=== PATIENT | female | born 1945 | race Caucasian/White ===

== ENCOUNTER 2021-08-25 11:58 | Inpatient (IN) ==
[2021-08-25 16:17] LABS: Basophils % 0.1 % (0.0-0.8); Eosinophils # 0.2 10*3/uL (0.0-0.87); Eosinophils % 2.1 % (0.00-10.9); Hematocrit 37.2 VOL% (35.7-47.0); Hemoglobin 11.8 GM/DL (12.0-16.0); Immature Granulocytes % 0.4 %; Immature Granulocytes Absolute 0.03 #; Lymphocytes # 1.9 10*3/uL (1.4-4.0); Lymphocytes % 23.3 % (21.3-54.2); Mean Corpuscular HGB Conc 31.7 GM/DL (32-36); Mean Corpuscular Volume 89.6 FL (87-102); Mean Platelet Volume 11.3 FL (9.6-12.0); Monocytes % 9.3 % (1.7-12.7); Neutrophils % 64.8 % (38.7-73.9); Platelet Count 238 T/CUMM (130-400); Red Blood Count 4.15 MC/CUMM (3.8-5.5); Red Cell Distribution Width 13.3 % (9.3-17.3); White Blood Count 8.2 T/CUMM (4-12)
[2021-08-25 16:25] LABS: PT Patient Result 10.9 SECS (10.5-12.0); Partial Thromboplastin Time 20.9 SECS (23.8-32.1)
[2021-08-25 16:32] LABS: Alanine Aminotransferase 23 U/L (13-56); Albumin 3.1 G/DL (3.4-5.0); Alkaline Phosphatase 40 U/L (45-117); Aspartate Amino Transferase 24 U/L (0-37); Bilirubin,Total < 0.39 MG/DL (0.20-1.00); Blood Urea Nitrogen 19 MG/DL (7-18); Calcium 9.5 MG/DL (8.5-10.1); Carbon Dioxide 24 MMOL/L (21-32); Estimated Glom Filtration Rate 75 ML/MIN; Glucose 184 MG/DL (74-106); Osmolality,Calculated 281.7 MOS/KG (273-304); Potassium 4.5 MMOL/L (3.5-5.1); Sodium 138 MMOL/L (136-145)
[2021-08-25 16:36] LABS: Risk Ratio 3.33
[2021-08-25] MEDS ORDERED: GLUCAGON 1 MG VIAL IM PRN (18:20)
[2021-08-25] MEDS ORDERED: DEXTROSE 10% 250 ML BAG IV PRN (18:34)
[2021-08-25] MEDS: INSULIN REGULAR 100 UNIT/ML SUBCUT SCH (21:34)
[2021-08-25] MEDS: SIMVASTATIN 10 MG TABLET PO SCH (21:37)
[2021-08-25] MEDS ORDERED: ONDANSETRON 4 MG/2 ML VIAL IV PRN (21:45)
[2021-08-25] MEDS: SODIUM CHLORIDE 0.9% 1,000 ML IV SCH (22:38)
[2021-08-25] MEDS: DOCUSATE SODIUM 100 MG CAPSULE PO SCH (23:19)
[2021-08-25] MEDS: MEMANTINE 10 MG TABLET PO SCH (23:20)
[2021-08-26 05:13] LABS: Basophils % 0.4 % (0.0-0.8); Eosinophils # 0.3 10*3/uL (0.0-0.87); Eosinophils % 3.5 % (0.00-10.9); Hematocrit 34.2 VOL% (35.7-47.0); Hemoglobin 10.8 GM/DL (12.0-16.0); Immature Granulocytes % 0.4 %; Immature Granulocytes Absolute 0.03 #; Lymphocytes # 2.4 10*3/uL (1.4-4.0); Lymphocytes % 32.2 % (21.3-54.2); Mean Corpuscular HGB Conc 31.6 GM/DL (32-36); Mean Corpuscular Volume 90.2 FL (87-102); Mean Platelet Volume 11.6 FL (9.6-12.0); Monocytes % 10.4 % (1.7-12.7); Neutrophils % 53.1 % (38.7-73.9); Platelet Count 225 T/CUMM (130-400); Red Blood Count 3.79 MC/CUMM (3.8-5.5); Red Cell Distribution Width 13.5 % (9.3-17.3); White Blood Count 7.3 T/CUMM (4-12)
[2021-08-26 05:28] LABS: Alanine Aminotransferase 20 U/L (13-56); Albumin 2.9 G/DL (3.4-5.0); Alkaline Phosphatase 35 U/L (45-117); Aspartate Amino Transferase 14 U/L (0-37); Bilirubin,Total < 0.39 MG/DL (0.20-1.00); Blood Urea Nitrogen 18 MG/DL (7-18); Calcium 8.7 MG/DL (8.5-10.1); Carbon Dioxide 27 MMOL/L (21-32); Estimated Glom Filtration Rate 74 ML/MIN; Glucose 123 MG/DL (74-106); Osmolality,Calculated 285.1 MOS/KG (273-304); Potassium 3.3 MMOL/L (3.5-5.1); Sodium 142 MMOL/L (136-145); Total Protein 6.1 G/DL (6.4-8.2)
[2021-08-26] MEDS: SODIUM CHLORIDE 0.9% 1,000 ML IV SCH ×2 (06:27→17:15)
[2021-08-26 09:02] LABS: Folate > 24.00 NG/ML (5.38-24.0); Vitamin B12 922 PG/ML (211-911)
[2021-08-26] MEDS: CLOPIDOGREL 75 MG TABLET PO SCH (09:41)
[2021-08-26] MEDS: PANTOPRAZOLE 40 MG TABLET PO SCH (09:41)
[2021-08-26] MEDS: INSULIN REGULAR 100 UNIT/ML SUBCUT SCH ×4 (09:41→21:08)
[2021-08-26] MEDS: CYANOCOBALAMIN 500 MCG TABLET PO SCH (09:41)
[2021-08-26] MEDS: hydrALAZINE 25 MG TABLET PO SCH (09:42)
[2021-08-26] MEDS: DOCUSATE SODIUM 100 MG CAPSULE PO SCH ×2 (09:42→21:07)
[2021-08-26] MEDS: SERTRALINE 25 MG TABLET PO SCH (09:42)
[2021-08-26] MEDS: ASPIRIN EC 81 MG TABLET PO SCH (09:42)
[2021-08-26] MEDS: DONEPEZIL 10 MG TABLET PO SCH (09:42)
[2021-08-26] MEDS: FENOFIBRATE 160 MG TABLET PO SCH (09:46)
[2021-08-26] MEDS: ANASTROZOLE 1 MG TABLET PO SCH (09:46)
[2021-08-26] MEDS ORDERED: POTASSIUM CHLORIDE 20 MEQ TABLET PO ONE (16:35)
[2021-08-26] MEDS ORDERED: POTASSIUM CHLORIDE 20 MEQ TABLET PO PRN (16:35)
[2021-08-26] MEDS: SIMVASTATIN 10 MG TABLET PO SCH (21:07)
[2021-08-26] MEDS: MEMANTINE 10 MG TABLET PO SCH (21:07)
[2021-08-27] MEDS: SODIUM CHLORIDE 0.9% 1,000 ML IV SCH ×3 (00:07→16:40)
[2021-08-27] MEDS: INSULIN REGULAR 100 UNIT/ML SUBCUT SCH ×4 (08:15→21:27)
[2021-08-27] MEDS: hydrALAZINE 25 MG TABLET PO SCH (09:18)
[2021-08-27] MEDS: ASPIRIN EC 81 MG TABLET PO SCH (09:18)
[2021-08-27] MEDS: DONEPEZIL 10 MG TABLET PO SCH (09:18)
[2021-08-27] MEDS: FENOFIBRATE 160 MG TABLET PO SCH (09:18)
[2021-08-27] MEDS: DOCUSATE SODIUM 100 MG CAPSULE PO SCH ×2 (09:18→21:26)
[2021-08-27] MEDS: SERTRALINE 25 MG TABLET PO SCH (09:19)
[2021-08-27] MEDS: ANASTROZOLE 1 MG TABLET PO SCH (09:19)
[2021-08-27] MEDS: CLOPIDOGREL 75 MG TABLET PO SCH (09:19)
[2021-08-27] MEDS: CYANOCOBALAMIN 500 MCG TABLET PO SCH (09:19)
[2021-08-27] MEDS: PANTOPRAZOLE 40 MG TABLET PO SCH (09:19)
[2021-08-27 12:48] LABS: Calcium 8.2 MG/DL (8.5-10.1); Osmolality,Calculated 284.3 MOS/KG (273-304)
[2021-08-27] MEDS: MEMANTINE 10 MG TABLET PO SCH (21:26)
[2021-08-27] MEDS: SIMVASTATIN 10 MG TABLET PO SCH (21:26)
[2021-08-28] MEDS: SODIUM CHLORIDE 0.9% 1,000 ML IV SCH ×2 (00:10→09:34)
[2021-08-28 05:51] LABS: Basophils % 0.3 % (0.0-0.8); Eosinophils # 0.3 10*3/uL (0.0-0.87); Eosinophils % 4.1 % (0.00-10.9); Hemoglobin 10.9 GM/DL (12.0-16.0); Immature Granulocytes % 0.5 %; Immature Granulocytes Absolute 0.03 #; Lymphocytes # 2.3 10*3/uL (1.4-4.0); Lymphocytes % 35.4 % (21.3-54.2); Mean Corpuscular HGB Conc 31.1 GM/DL (32-36); Mean Corpuscular Volume 91.1 FL (87-102); Mean Platelet Volume 11.6 FL (9.6-12.0); Monocytes % 10.3 % (1.7-12.7); Neutrophils % 49.4 % (38.7-73.9); Platelet Count 220 T/CUMM (130-400); Red Blood Count 3.84 MC/CUMM (3.8-5.5); Red Cell Distribution Width 13.3 % (9.3-17.3); White Blood Count 6.5 T/CUMM (4-12)
[2021-08-28 06:13] LABS: Alanine Aminotransferase 16 U/L (13-56); Albumin 2.5 G/DL (3.4-5.0); Alkaline Phosphatase 31 U/L (45-117); Aspartate Amino Transferase 16 U/L (0-37); Bilirubin,Total < 0.39 MG/DL (0.20-1.00); Blood Urea Nitrogen 16 MG/DL (7-18); Calcium 8.6 MG/DL (8.5-10.1); Carbon Dioxide 21 MMOL/L (21-32); Estimated Glom Filtration Rate 85 ML/MIN; Glucose 124 MG/DL (74-106); Potassium 3.9 MMOL/L (3.5-5.1); Sodium 143 MMOL/L (136-145); Total Protein 5.6 G/DL (6.4-8.2)
[2021-08-28] MEDS: CLOPIDOGREL 75 MG TABLET PO SCH (09:29)
[2021-08-28] MEDS: CYANOCOBALAMIN 500 MCG TABLET PO SCH (09:30)
[2021-08-28] MEDS: SERTRALINE 25 MG TABLET PO SCH (09:30)
[2021-08-28] MEDS: DONEPEZIL 10 MG TABLET PO SCH (09:30)
[2021-08-28] MEDS: hydrALAZINE 25 MG TABLET PO SCH (09:30)
[2021-08-28] MEDS: DOCUSATE SODIUM 100 MG CAPSULE PO SCH ×2 (09:30→21:30)
[2021-08-28] MEDS: PANTOPRAZOLE 40 MG TABLET PO SCH (09:30)
[2021-08-28] MEDS: ANASTROZOLE 1 MG TABLET PO SCH (09:30)
[2021-08-28] MEDS: ASPIRIN EC 81 MG TABLET PO SCH (09:30)
[2021-08-28] MEDS: INSULIN REGULAR 100 UNIT/ML SUBCUT SCH ×4 (09:35→21:31)
[2021-08-28] MEDS: FENOFIBRATE 160 MG TABLET PO SCH (09:39)
[2021-08-28] MEDS: ACETAMINOPHEN 325 MG TABLET PO PRN (09:39)
[2021-08-28] MEDS ORDERED: MAGNESIUM HYDROXIDE SUSP 30 ML UDCUP PO PRN (13:45)
[2021-08-28] MEDS: SIMVASTATIN 10 MG TABLET PO SCH (21:30)
[2021-08-28] MEDS: MEMANTINE 10 MG TABLET PO SCH (21:30)
[2021-08-29] MEDS: ACETAMINOPHEN 325 MG TABLET PO PRN (01:25)
[2021-08-29 06:19] LABS: Basophils % 0.4 % (0.0-0.8); Eosinophils # 0.3 10*3/uL (0.0-0.87); Eosinophils % 4.3 % (0.00-10.9); Hematocrit 35.7 VOL% (35.7-47.0); Hemoglobin 11.2 GM/DL (12.0-16.0); Immature Granulocytes % 0.4 %; Immature Granulocytes Absolute 0.03 #; Lymphocytes # 2.2 10*3/uL (1.4-4.0); Lymphocytes % 31.9 % (21.3-54.2); Mean Corpuscular HGB Conc 31.4 GM/DL (32-36); Mean Corpuscular Volume 91.1 FL (87-102); Mean Platelet Volume 11.4 FL (9.6-12.0); Monocytes % 11.7 % (1.7-12.7); Neutrophils % 51.3 % (38.7-73.9); Platelet Count 215 T/CUMM (130-400); Red Blood Count 3.92 MC/CUMM (3.8-5.5); Red Cell Distribution Width 13.3 % (9.3-17.3); White Blood Count 6.7 T/CUMM (4-12)
[2021-08-29 06:50] LABS: Calcium 8.5 MG/DL (8.5-10.1); Osmolality,Calculated 286.3 MOS/KG (273-304); Potassium 3.7 MMOL/L (3.5-5.1)
[2021-08-29] MEDS: FENOFIBRATE 160 MG TABLET PO SCH (08:59)
[2021-08-29] MEDS: CLOPIDOGREL 75 MG TABLET PO SCH (09:00)
[2021-08-29] MEDS: ANASTROZOLE 1 MG TABLET PO SCH (09:01)
[2021-08-29] MEDS: DOCUSATE SODIUM 100 MG CAPSULE PO SCH (09:01)
[2021-08-29] MEDS: PANTOPRAZOLE 40 MG TABLET PO SCH (09:01)
[2021-08-29] MEDS: CYANOCOBALAMIN 500 MCG TABLET PO SCH (09:02)
[2021-08-29] MEDS: ASPIRIN EC 81 MG TABLET PO SCH (09:02)
[2021-08-29] MEDS: SERTRALINE 25 MG TABLET PO SCH (09:03)
[2021-08-29] MEDS: hydrALAZINE 25 MG TABLET PO SCH (09:03)
[2021-08-29] MEDS: DONEPEZIL 10 MG TABLET PO SCH (09:04)
[2021-08-29] MEDS: INSULIN REGULAR 100 UNIT/ML SUBCUT SCH ×3 (09:04→16:02)
[2021-08-29 18:59] VITALS: BP 170/80
== END 2021-08-29 19:12 | DRG 65 ==
LOC: N.ED 11:58 → N.TELEN 15:56
PROVIDERS: ADMIT Internal Medicine; ATTEND Internal Medicine